=== PATIENT | female | born 1980 | race Caucasian/White ===

== ENCOUNTER 2020-11-24 05:04 | Emergency (ER) | payer SELFPAY ==
[2020-11-24] MEDS ORDERED: BACTRIM DS TAB1 EACH PO (05:46)
== END 2020-11-24 05:51 | disposition home or self-care (01) ==
LOC: ER1 05:04
DX: N39.0 Urinary tract infection, site not specified (principal); Z98.890 Other specified postprocedural states
CPT/HCPCS: 81001; 87086; 99283

== ENCOUNTER 2021-05-31 07:05 | Emergency (ER) | payer SELFPAY ==
[~2021-05-31 07:05] MED LIST: BACTRIM DS TAB1 EACH PO
[2021-05-31] MEDS ORDERED: BACTRIM DS TAB1 EACH PO (07:49)
[2021-05-31] MEDS ORDERED: IBUPROFEN800 MG PO (07:49)
== END 2021-05-31 07:15 | disposition home or self-care (01) ==
LOC: ER1 07:05
DX: L03.116 Cellulitis of left lower limb (principal); E11.9 Type 2 diabetes mellitus without complications; E78.00 Pure hypercholesterolemia, unspecified
CPT/HCPCS: 99283

== ENCOUNTER 2021-10-12 03:25 | Emergency (ER) | payer OTHER ==
[~2021-10-12 03:25] MED LIST changes: +IBUPROFEN800 MG PO
[2021-10-12] MEDS ORDERED: OMNICEF 300 MG300 MG PO (04:43)
== END 2021-10-12 04:46 | disposition home or self-care (01) ==
LOC: ER1 03:25
DX: N39.0 Urinary tract infection, site not specified (principal); E11.9 Type 2 diabetes mellitus without complications; E78.5 Hyperlipidemia, unspecified; Z88.8 Allergy status to other drugs, medicaments and biological substances
CPT/HCPCS: 81001; 99283